=== PATIENT | female | born 1950 | race Two or more races ===

== ENCOUNTER 2023-06-06 14:13 | Emergency (ER) | payer OTHER ==
[~2023-06-06] VITALS: Ht 167.6 cm; Wt 68.0 kg
[2023-06-06] MEDS ORDERED: ATENOLOL25 MG PO (14:29)
[2023-06-06] MEDS ORDERED: VASOTEC20 M1 PO (14:29)
[2023-06-06] MEDS ORDERED: LEVOTHYROXINE25 MCG PO (14:30)
[2023-06-06] MEDS ORDERED: 0.9 % SODIUM CHLORIDE 1,000 ML IV SCH (16:30)
[2023-06-06 16:38] LABS: HEMATOCRIT 37.7 % (36.0-45.00); HEMOGLOBIN 12.7 g/dL (12.0-15.00); MEAN CELL VOLUME 86.7 fL (80.00-100.00); MEAN CORPUSCULAR HEMOGLOBIN 29.1 pg (27.00-32.0); MEAN CORPUSCULAR HGB CONC 33.6 g/dl (32.0-36.0); PLATELET COUNT 323 K/uL (150-450); RED BLOOD COUNT 4.34 M/uL (4.00-6.00); RED CELL DISTRIBUTION WIDTH 13.5 % (11.5-14.5)
[2023-06-06 16:50] LABS: URINE APPEARANCE Cloudy; URINE BILIRRUBIN Negative (NEGATIVE); URINE BLOOD Negative; URINE COLOR Dark Yellow; URINE GLUCOSE Negative (NEGATIVE); URINE LEUKOCYTE Moderate; URINE NITRATE Negative; URINE PROTEIN Trace (NEGATIVE)
[2023-06-06 16:53] LABS: URINE BACTERIA 496.4 uL (0.0-1933); URINE EPITHELIAL CELLS 83.9 uL (0.0-38.8); URINE RBC 9.7 uL (0.0-20.8); URINE WBC 65.2 uL (0.0-23.2)
[2023-06-06] MEDS ORDERED: MULTIVIT INFUSN,ADULT 4,VIT K 10 ML VIAL IV ONE (17:00)
[2023-06-06 17:03] LABS: CREATININE SERUM 1.06 mg/dL (0.55-1.02); GFR 50.96; POTASSIUM 4.06 mEq/L (3.5-5.1)
== END 2023-06-06 19:10 | disposition home or self-care (01) ==
LOC: ER 14:13
PROVIDERS: Emergency Medicine
DX: R42 Dizziness and giddiness (principal); R53.1 Weakness; I10 Essential (primary) hypertension; E03.8 Other specified hypothyroidism
CPT/HCPCS: 36415; 70450; 93005; 96365; 96366; 99284; J3490; J7030